=== PATIENT | male | born 1990 | race Asian ===

== ENCOUNTER 2020-06-11 08:53 | Emergency (ER) | payer OTHER ==
[2020-06-11 09:54] LABS: BASOPHIL 0.2 % (0-2); EOSINOPHIL 0 % (0-5); HCT 45.8 % (42.0-52.0); HGB 15.9 g/dl (13.2-18.0); LYMPHOCYTE 21.5 % (15-48); MCH 30.9 pg (25.0-31.0); MCHC 34.7 g/dL (32.0-36.0); MCV 88.9 fL (78.0-100.0); MONOCYTE 11.3 % (0-12); MPV 9.5 fL (6.0-9.5); NEUTROPHIL 66.8 % (41-80); NRBC 0; PLT 285 K/uL (150-400); RBC 5.15 M/uL (4.70-6.00); RDW 11.9 % (11.5-14.0); WBC 4.8 K/uL (4.0-10.5)
[2020-06-11 09:57] LABS: INR 1.03 (0.9-1.2); PROTHROMBIN TIME 12.8 SECONDS (11.4-13.6)
[2020-06-11 09:58] LABS: PTT 33.9 SECONDS (22.2-34.7)
[2020-06-11 10:02] LABS: ALBUMIN 4.3 g/dL (3.4-5.0); BILIRUBIN - TOTAL 0.5 mg/dL (0.2-1.0); BUN/CREAT RATIO (CALC) 9.8 RATIO; CREATININE 0.82 mg/dL (0.67-1.17); GLOBULIN (CALCULATION) 3.9 g/dL; POTASSIUM 4.2 mmol/L (3.5-5.1); TOTAL PROTEIN 8.2 g/dL (6.4-8.2)
[2020-06-18] MEDS ORDERED: MULTIVITAMIN200 MCG PO (11:11)
== END 2020-06-11 13:05 | disposition home or self-care (01) ==
LOC: FER 08:53
PROVIDERS: Emergency Medicine
DX: K62.5 Hemorrhage of anus and rectum (principal)
CPT/HCPCS: 36415; 80053; 85025; 85610; 85730; Q9967

== ENCOUNTER → 2020-06-18 | Day surgery (SDC) | payer OTHER ==
[~2020-06-18] MED LIST: MULTIVITAMIN200 MCG PO
--- NOTE | 2020-06-18 11:30 | NUR ---
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
== END | disposition home or self-care (01) ==
LOC: FAS 10:36
DX: K64.8 Other hemorrhoids (principal); K64.4 Residual hemorrhoidal skin tags; Z20.822 Contact with and (suspected) exposure to COVID-19; Z82.49 Family history of ischemic heart disease and other diseases of the circulatory system; Z87.891 Personal history of nicotine dependence
CPT/HCPCS: J2250; J2704